=== PATIENT | female | born 1980 | race Caucasian/White ===

== ENCOUNTER 2024-03-03 11:07 | Emergency (ER) | payer MEDICARE, MEDICAID ==
[2024-03-03 11:38] LABS: BASOPHILS PERCENT AUTO 0.1 % (0.2-1.2); EOSINOPHILS PERCENT AUTO 0.1 % (0.0-4.0); HEMATOCRIT 44.1 % (33.0-47.0); HEMOGLOBIN 15.1 g/dL (12.0-16.0); IMMATURE GRAN ABSOLUTE AUTO 0.06 x10^3/uL (0.00-0.07); LYMPHOCYTES ABSOLUTE AUTO 0.3 x10^3/uL (1.0-4.8); LYMPHOCYTES PERCENT AUTO 1.6 % (25.0-50.0); MEAN CORPUSCULAR HEMOGLOBIN 32.5 pg (26.0-32.0); MEAN CORPUSCULAR HGB CONC 34.2 g/dL (32.0-36.0); MONOCYTES ABSOLUTE AUTO 0.3 x10^3/uL (0.0-0.8); MONOCYTES PERCENT AUTO 1.6 % (2.0-11.0); NEUTROPHILS PERCENT AUTO 96.2 % (50.0-80.0); RED BLOOD CELL COUNT 4.64 x10^6/uL (4.00-5.50); WHITE BLOOD CELL COUNT,WBC 16.6 x10^3/uL (4.0-10.0)
[2024-03-03 11:49] LABS: PLATELET COUNT,PLT 246 x10^3/uL (130-400)
[2024-03-03 12:01] LABS: A/G RATIO 0.67; ALBUMIN 2.9 g/dL (3.4-5.0); BILIRUBIN TOTAL 0.4 mg/dL (0.2-1.0); C-REACTIVE PROTEIN 3.29 mg/dL (<=0.50); CALCIUM 8.3 mg/dL (8.5-10.1); CREATININE 1.2 mg/dL (0.55-1.02); EST CRCL DRUG DOSING (CG) 42.52 mL/min; POTASSIUM,K 4.2 mmol/L (3.5-5.1); PROTEIN TOTAL,TP 7.2 g/dL (6.4-8.2)
[2024-03-03 12:02] LABS: APPEARANCE,URINE CLOUDY (CLEAR); BILIRUBIN,URINE NEGATIVE (NEGATIVE); COLOR,URINE YELLOW (YELLOW); GLUCOSE,URINE NEGATIVE (NEGATIVE); KETONES,URINE NEGATIVE (NEGATIVE); LEUKOCYTE ESTERASE,URINE NEGATIVE (NEGATIVE); NITRITE,URINE NEGATIVE (NEGATIVE); OCCULT BLOOD,URINE TRACE-INTACT (NEGATIVE); PROTEIN,URINE NEGATIVE (NEGATIVE); UROBILINOGEN,URINE 0.2 EU/dL (0.2)
[2024-03-03 12:06] LABS: ANION GAP 15.2 mmol/L (5-15)
[2024-03-03 12:07] LABS: CORONAVIRUS COVID-19 NAA NEGATIVE (NEGATIVE); INFLUENZA A NAA NEGATIVE (NEGATIVE); INFLUENZA B NAA NEGATIVE (NEGATIVE); RESPIRATORY SYNCYTIAL VIR NAA NEGATIVE (NEGATIVE)
[2024-03-03 12:11] LABS: BACTERIA,URINE FEW /HPF (NOT SEEN); MUCUS,URINE OCCASIONAL /LPF (NOT SEEN); SQUAMOUS EPITHELIAL CELLS,UR FEW /HPF (NOT SEEN); WBC,URINE 0-5 /HPF (NOT SEEN)
[2024-03-03] MEDS: Iopamidol 612 MG/ML 100 ML Bottle IVPUSH ONE (12:47)
== END 2024-03-03 13:52 | disposition home or self-care (01) ==
LOC: VM.ED 11:07
DX: K52.9 Noninfective gastroenteritis and colitis, unspecified (principal); Z88.1 Allergy status to other antibiotic agents; Z88.8 Allergy status to other drugs, medicaments and biological substances; Z91.09 Other allergy status, other than to drugs and biological substances; Z79.899 Other long term (current) drug therapy
CPT/HCPCS: 0241U; 36415; 71046; 74177; 80053; 81001; 83690; 85025; 86140; 99284; Q9967

== ENCOUNTER 2024-03-04 11:43 | Emergency (ER) | payer MEDICARE, MEDICAID ==
[2024-03-04 12:20] LABS: BILIRUBIN,URINE SMALL (NEGATIVE); COLOR,URINE LIGHT YELLOW (YELLOW); GLUCOSE,URINE NEGATIVE (NEGATIVE); KETONES,URINE NEGATIVE (NEGATIVE); LEUKOCYTE ESTERASE,URINE NEGATIVE (NEGATIVE); NITRITE,URINE NEGATIVE (NEGATIVE); OCCULT BLOOD,URINE NEGATIVE (NEGATIVE); PROTEIN,URINE 30 mg/dL (NEGATIVE)
[2024-03-04 12:22] LABS: APPEARANCE,URINE SLIGHTLY CLOUDY (CLEAR)
[2024-03-04 12:25] LABS: AMORPHOUS SEDIMENT,URINE OCCASIONAL; BACTERIA,URINE OCCASIONAL /HPF (NOT SEEN); MUCUS,URINE OCCASIONAL /LPF (NOT SEEN); RBC,URINE 0-5 /HPF (NOT SEEN); SQUAMOUS EPITHELIAL CELLS,UR MODERATE /HPF (NOT SEEN); WBC,URINE 0-5 /HPF (NOT SEEN)
[2024-03-04] MEDS: Take Home: Phenazopyridine 95 MG Tab, 4 Tab Pack PO ONE (12:45)
== END 2024-03-04 12:50 | disposition home or self-care (01) ==
LOC: VM.ED 11:43
DX: R30.0 Dysuria (principal); E78.00 Pure hypercholesterolemia, unspecified; Z79.899 Other long term (current) drug therapy; Z88.1 Allergy status to other antibiotic agents; Z88.8 Allergy status to other drugs, medicaments and biological substances
CPT/HCPCS: 81001; 99283; 99284; A9270-GY

== ENCOUNTER 2025-04-17 20:06 | Emergency (ER) | payer MEDICARE, MEDICAID | END 2025-04-17 20:29 | disposition home or self-care (01) | LOC: VM.ED 20:06 | DX: R09.89 Other specified symptoms and signs involving the circulatory and respiratory systems (principal); E03.9 Hypothyroidism, unspecified; Z88.8 Allergy status to other drugs, medicaments and biological substances; Z91.048 Other nonmedicinal substance allergy status; Z79.890 Hormone replacement therapy; Z79.899 Other long term (current) drug therapy | CPT/HCPCS: 99283 ==

== ENCOUNTER 2025-05-08 16:47 | Emergency (ER) | payer MEDICARE, MEDICAID ==
[2025-05-08] MEDS ORDERED: Sodium Chloride 0.9% 10 ML Syringe FLUSH PRN (16:57)
[2025-05-08 17:15] LABS: BASOPHILS ABSOLUTE AUTO 0.1 x10^3/uL (0.0-0.2); BASOPHILS PERCENT AUTO 1.3 % (0.2-1.2); EOSINOPHILS ABSOLUTE AUTO 0.2 x10^3/uL (0.0-0.5); EOSINOPHILS PERCENT AUTO 2.8 % (0.0-4.0); HEMATOCRIT 44.6 % (33.0-47.0); IMMATURE GRAN ABSOLUTE AUTO 0.01 x10^3/uL (0.00-0.07); LYMPHOCYTES ABSOLUTE AUTO 2.2 x10^3/uL (1.0-4.8); LYMPHOCYTES PERCENT AUTO 35.2 % (25.0-50.0); MEAN CORPUSCULAR HEMOGLOBIN 32.7 pg (26.0-32.0); MEAN CORPUSCULAR HGB CONC 33.6 g/dL (32.0-36.0); MEAN CORPUSCULAR VOLUME 97.2 fL (78.0-93.0); MONOCYTES ABSOLUTE AUTO 0.5 x10^3/uL (0.0-0.8); MONOCYTES PERCENT AUTO 8.5 % (2.0-11.0); NEUTROPHILS ABSOLUTE AUTO 3.2 x10^3/uL (1.8-7.7); PLATELET COUNT,PLT 244 x10^3/uL (130-400); RED BLOOD CELL COUNT 4.59 x10^6/uL (4.00-5.50); WHITE BLOOD CELL COUNT,WBC 6.1 x10^3/uL (4.0-10.0)
[2025-05-08] MEDS: HYDROmorphone 0.5 MG/0.5 ML Syringe IVPUSH ONE (17:26)
[2025-05-08 17:29] LABS: A/G RATIO 0.67; ALANINE AMINOTRANSFERASE,ALT 33 U/L (14-59); ALBUMIN 2.9 g/dL (3.4-5.0); ALKALINE PHOSPHATASE 72 U/L (46-116); ASPARTATE AMNIOTRANSFERASE,AST 25 U/L (15-37); BILIRUBIN TOTAL 0.2 mg/dL (0.2-1.0); BLOOD UREA NITROGEN,BUN 19 mg/dL (7-18); C-REACTIVE PROTEIN 0.61 mg/dL (<=0.50); CALCIUM 8.2 mg/dL (8.5-10.1); CARBON DIOXIDE,CO2 29 mmol/L (21-32); CHLORIDE,CL 105 mmol/L (98-107); CREATININE 1.3 mg/dL (0.55-1.02); GLUCOSE RANDOM 114 mg/dL (70-99); MAGNESIUM 2.3 mg/dL (1.8-2.4); POTASSIUM,K 4.3 mmol/L (3.5-5.1); PROTEIN TOTAL,TP 7.2 g/dL (6.4-8.2); SODIUM,NA 140 mmol/L (136-145)
[2025-05-08 17:31] LABS: ANION GAP 10.3 mmol/L (5-15); ESTIMATED GFR 51 mL/min (>=60)
[2025-05-08 17:32] LABS: LACTIC ACID 2.1 mmol/L (0.4-2.0)
[2025-05-08] MEDS: Iopamidol 612 MG/ML 100 ML Bottle IVPUSH ONE (18:19)
[2025-05-08] MEDS: Take Home: Amoxicillin 875 MG Tab, 2 Tab Pack PO ONE (18:53)
== END 2025-05-08 19:03 | disposition home or self-care (01) ==
LOC: VM.ED 16:47
DX: L03.211 Cellulitis of face (principal); E78.00 Pure hypercholesterolemia, unspecified; E03.9 Hypothyroidism, unspecified; Z79.890 Hormone replacement therapy; Z79.899 Other long term (current) drug therapy; Z88.1 Allergy status to other antibiotic agents; Z91.09 Other allergy status, other than to drugs and biological substances; Z88.8 Allergy status to other drugs, medicaments and biological substances
CPT/HCPCS: 36415; 70491; 71045; 80053; 83605; 83735; 85025; 86140; 96374; 99284; 99285-25; A9270-GY; Q9967